=== PATIENT | male | born 1965 | race Hispanic/Latino ===

== ENCOUNTER 2024-03-10 17:38 | Inpatient (IN) | payer OTHER ==
[~2024-03-10] VITALS: Ht 175.3 cm; Wt 89.9 kg
[2024-03-10] MEDS: ACETAMINOPHEN 325 MG TAB PO ONE (18:25)
[2024-03-10 18:49] LABS: CORONAVIRUS COVID-19 AG NEGATIVE (NEGATIVE); INFLUENZA A AG NEGATIVE (NEGATIVE); INFLUENZA B AG NEGATIVE (NEGATIVE)
[2024-03-10 19:09] LABS: BASOPHILS % 0.3 % (0.0-1.0); EOSINOPHILS % 0.3 % (0.0-6.0); HEMATOCRIT 31.7 % (38.2-49.6); LYMPHOCYTES # (AUTO) 1.1 (1.0-3.2); LYMPHOCYTES % 7.5 % (18.0-39.1); MEAN CORPUSCULAR HEMOGLOBIN 31.5 pg (28-32); MEAN CORPUSCULAR HGB CONC 31.5 g/dL (31-35); MONOCYTES # (AUTO) 0.5 (0.2-0.8); MONOCYTES % 3.3 % (4.4-11.3); NEUTROPHILS # (AUTO) 12.6 (2.1-6.9); NEUTROPHILS % 87.4 % (38.7-80.0); PLATELET COUNT 639 x10e3/uL (140-360); RED BLOOD COUNT 3.17 x10e6/uL (4.3-5.7); RED CELL DISTRIBUTION WIDTH 13.2 % (11.7-14.4); WHITE BLOOD COUNT 14.45 x10e3/uL (4.8-10.8)
[2024-03-10] MEDS: SODIUM CHLORIDE 0.9% 1000ML 1,000 ML IV ONE ×2 (19:15→22:25)
[2024-03-10 19:25] VITALS: TEMP 98.7
[2024-03-10 19:31] LABS: ALBUMIN 2.2 g/dL (3.5-5.0); ALBUMIN/GLOBULIN RATIO 0.4 (0.8-2.0); ANION GAP 17.2 mmol/L (8-16); CALCIUM 9.6 mg/dL (8.4-10.2); CREATININE, SERUM 1.28 mg/dL (0.72-1.25); POTASSIUM 4.2 mmol/L (3.5-5.1)
[2024-03-10 22:30] VITALS: PULSE 91; RESP 16; O2SAT 97
[2024-03-10 23:30] VITALS: PULSE 93; RESP 20
[2024-03-10 23:51] VITALS: BP 131/68; PULSE 95; RESP 22; TEMP 97.6; O2SAT 97
[2024-03-11] VITALS (10 sets, daily range): BP systolic 119–131; BP diastolic 63–70; PULSE 62–102; RESP 16–22; TEMP 97.6–98.5; O2SAT 95–98
[2024-03-11] MEDS ORDERED: LOVASTATIN40 MG PO (01:05)
[2024-03-11] MEDS ORDERED: AMLODIPINE BESY10 MG PO (01:05)
[2024-03-11] MEDS ORDERED: ENALAPRIL MALEA20 MG PO (01:05)
[2024-03-11] MEDS ORDERED: FENOFIBRATE200 MG PO (01:05)
[2024-03-11] MEDS: BENZONATATE 100 MG CAP PO PRN (01:57)
[2024-03-11 08:53] LABS: BASOPHILS % 0.1 % (0.0-1.0); EOSINOPHILS % 0.1 % (0.0-6.0); HEMATOCRIT 30.1 % (38.2-49.6); HEMOGLOBIN 9.5 g/dL (14.0-18.0); LYMPHOCYTES # (AUTO) 1.4 (1.0-3.2); MEAN CORPUSCULAR HEMOGLOBIN 31.1 pg (28-32); MEAN CORPUSCULAR HGB CONC 31.6 g/dL (31-35); MEAN CORPUSCULAR VOLUME 98.7 fL (81-99); MONOCYTES # (AUTO) 0.6 (0.2-0.8); MONOCYTES % 3.7 % (4.4-11.3); NEUTROPHILS # (AUTO) 14.8 (2.1-6.9); NEUTROPHILS % 86.8 % (38.7-80.0); PLATELET COUNT 593 x10e3/uL (140-360); RED BLOOD COUNT 3.05 x10e6/uL (4.3-5.7); RED CELL DISTRIBUTION WIDTH 13.2 % (11.7-14.4); WHITE BLOOD COUNT 17.09 x10e3/uL (4.8-10.8)
[2024-03-11 09:08] LABS: INR 1.16; PROTHROMBIN TIME 15.5 seconds (11.9-14.5)
[2024-03-11 09:09] LABS: PARTIAL THROMBOPLASTIN TIME 34.5 seconds (23.8-35.5)
[2024-03-11 09:17] LABS: ALBUMIN 1.9 g/dL (3.5-5.0); ALBUMIN/GLOBULIN RATIO 0.4 (0.8-2.0); BILIRUBIN,TOTAL 0.5 mg/dL (0.2-1.2); CALCIUM 8.8 mg/dL (8.4-10.2); CREATININE, SERUM 0.76 mg/dL (0.72-1.25); TOTAL PROTEIN 7.2 g/dL (6.5-8.1)
[2024-03-12 04:00] VITALS: BP 128/68; PULSE 88; RESP 17; TEMP 98; O2SAT 98
[2024-03-12 08:00] VITALS: BP 115/70; PULSE 93; RESP 18; TEMP 99; O2SAT 98
[2024-03-12 11:29] VITALS: BP 121/64; PULSE 98; RESP 20; TEMP 99.3; O2SAT 97
[2024-03-12 15:25] LABS: BODY FLUID APPEARANCE SL.CLOUDY; BODY FLUID COLOR YELLOW; BODY FLUID TYPE PLEURAL
[2024-03-12 15:26] LABS: RBC,BODY FLUID 1000 cells/uL; WBC,BODY FLUID 1604 cells/uL
[2024-03-12 16:09] VITALS: BP 125/63; PULSE 97; RESP 19; TEMP 99.7; O2SAT 98
[2024-03-12 16:21] LABS: LYMPHOCYTES,BODY FLUID 5 %; MONO/MACROPHG,BODY FLUID 17 %; NEUTROPHILS,BODY FLUID 78 %; TOTAL CELLS COUNTED (DIFF) 100
[2024-03-12] MEDS: ACETAMINOPHEN 325 MG TAB PO PRN (18:34)
[2024-03-12 20:00] VITALS: BP 104/57; PULSE 87; RESP 18; TEMP 98.1; O2SAT 97
[2024-03-12 20:53] VITALS: BP 104/57; PULSE 87; RESP 18; TEMP 98.1; O2SAT 97
[2024-03-13] VITALS (7 sets, daily range): BP systolic 107–117; BP diastolic 58–62; PULSE 78–96; RESP 18–20; TEMP 97.9–98.6; O2SAT 96–100
[2024-03-13 05:29] LABS: BASOPHILS % 0.3 % (0.0-1.0); EOSINOPHILS # (AUTO) 0.2 (0.0-0.4); EOSINOPHILS % 1.9 % (0.0-6.0); HEMOGLOBIN 8.9 g/dL (14.0-18.0); LYMPHOCYTES # (AUTO) 4.1 (1.0-3.2); LYMPHOCYTES % 34.1 % (18.0-39.1); MEAN CORPUSCULAR HEMOGLOBIN 31.6 pg (28-32); MEAN CORPUSCULAR HGB CONC 31.8 g/dL (31-35); MEAN CORPUSCULAR VOLUME 99.3 fL (81-99); MONOCYTES # (AUTO) 0.6 (0.2-0.8); MONOCYTES % 4.8 % (4.4-11.3); NEUTROPHILS # (AUTO) 6.9 (2.1-6.9); NEUTROPHILS % 58.4 % (38.7-80.0); PLATELET COUNT 696 x10e3/uL (140-360); RED BLOOD COUNT 2.82 x10e6/uL (4.3-5.7); RED CELL DISTRIBUTION WIDTH 13.3 % (11.7-14.4); WHITE BLOOD COUNT 11.89 x10e3/uL (4.8-10.8)
[2024-03-13 06:04] LABS: ALBUMIN 1.8 g/dL (3.5-5.0); ALBUMIN/GLOBULIN RATIO 0.4 (0.8-2.0); ANION GAP 14.5 mmol/L (8-16); BILIRUBIN,TOTAL 0.4 mg/dL (0.2-1.2); CALCIUM 8.9 mg/dL (8.4-10.2); CREATININE, SERUM 0.73 mg/dL (0.72-1.25); POTASSIUM 3.5 mmol/L (3.5-5.1); TOTAL PROTEIN 6.6 g/dL (6.5-8.1)
[2024-03-13 09:34] LABS: EOSINOPHILS % (MANUAL) 2 % (0-7); HYPOCHROMASIA SLIGHT; LYMPHOCYTES % (MANUAL) 30 % (19-48); MONOCYTES % (MANUAL) 5 % (3.4-9.0); NEUTROPHILS % (MANUAL) 60 % (40-74); PLATELET ESTIMATE SLIGHTLY INCREASED; PLATELET MORPHOLOGY COMMENT FEW LARGE; REACTIVE LYMPHOCYTES 3
[2024-03-14] VITALS (8 sets, daily range): BP systolic 111–122; BP diastolic 59–62; PULSE 81–91; RESP 16–19; TEMP 97.8–98.6; O2SAT 97–100
[2024-03-14 05:34] LABS: BASOPHILS # (AUTO) 0.1 (0.0-0.1); BASOPHILS % 0.4 % (0.0-1.0); EOSINOPHILS # (AUTO) 0.2 (0.0-0.4); EOSINOPHILS % 1.6 % (0.0-6.0); HEMATOCRIT 28.3 % (38.2-49.6); HEMOGLOBIN 9.3 g/dL (14.0-18.0); LYMPHOCYTES # (AUTO) 3.3 (1.0-3.2); LYMPHOCYTES % 27.8 % (18.0-39.1); MEAN CORPUSCULAR HEMOGLOBIN 31.2 pg (28-32); MEAN CORPUSCULAR HGB CONC 32.9 g/dL (31-35); MONOCYTES # (AUTO) 0.8 (0.2-0.8); MONOCYTES % 6.3 % (4.4-11.3); NEUTROPHILS # (AUTO) 7.6 (2.1-6.9); NEUTROPHILS % 63.2 % (38.7-80.0); PLATELET COUNT 721 x10e3/uL (140-360); RED BLOOD COUNT 2.98 x10e6/uL (4.3-5.7); RED CELL DISTRIBUTION WIDTH 13.4 % (11.7-14.4); WHITE BLOOD COUNT 11.99 x10e3/uL (4.8-10.8)
[2024-03-14 07:54] LABS: EOSINOPHILS % (MANUAL) 1 % (0-7); LYMPHOCYTES % (MANUAL) 32 % (19-48); MONOCYTES % (MANUAL) 4 % (3.4-9.0); NEUTROPHILS % (MANUAL) 63 % (40-74); PLATELET ESTIMATE MODERATELY INCREASED; PLATELET MORPHOLOGY COMMENT NORMAL
[2024-03-14 07:55] LABS: HYPOCHROMASIA SLIGHT
[2024-03-14] MEDS: AMLODIPINE BESYLATE 10 MG TAB PO SCH (11:26)
[2024-03-15] VITALS (9 sets, daily range): BP systolic 110–131; BP diastolic 57–65; PULSE 85–94; RESP 18–19; TEMP 98–99.9; O2SAT 94–100
[2024-03-15] MEDS ORDERED: AUGMENTIN 500-1 EACH PO (09:02)
[2024-03-15] MEDS ORDERED: BENZONATATE200 MG PO (09:09)
[2024-03-15 11:06] LABS: TOTAL PROTEIN,BODY FLUID 5.1 g/dL
[2024-03-15] MEDS: Morphine 4mg INJECTION 4 MG/ML INJ IV PRN (13:05)
[2024-03-15] MEDS: ONDANSETRON HCL INJ 2MG/ML 2ML 2 MG/ML VIAL IV PRN (13:05)
[2024-03-15 14:53] LABS: BODY FLUID TYPE PLEURAL
[2024-03-15 14:54] LABS: BODY FLUID APPEARANCE SL.CLOUDY; BODY FLUID COLOR YELLOW; RBC,BODY FLUID 1000 cells/uL; WBC,BODY FLUID 711 cells/uL
[2024-03-15 16:58] LABS: LYMPHOCYTES,BODY FLUID 33 %; MONO/MACROPHG,BODY FLUID 7 %; NEUTROPHILS,BODY FLUID 60 %; TOTAL CELLS COUNTED (DIFF) 100
[2024-03-16] VITALS (7 sets, daily range): BP systolic 114–126; BP diastolic 60–73; PULSE 76–87; RESP 18–19; TEMP 98.1–99.1; O2SAT 98–100
[2024-03-16] MEDS ORDERED: MAGNESIUM/ALUMINUM/SIMETHICONE 30 ML UDC PO PRN (04:30)
[2024-03-16] MEDS ORDERED: MELATONIN 3 MG TAB PO PRN (04:30)
[2024-03-16] MEDS ORDERED: HYDRALAZINE HCL 20 MG/ML VIAL IV PRN (04:30)
[2024-03-16 05:30] LABS: BASOPHILS # (AUTO) 0.1 (0.0-0.1); BASOPHILS % 0.5 % (0.0-1.0); EOSINOPHILS # (AUTO) 0.2 (0.0-0.4); EOSINOPHILS % 1.7 % (0.0-6.0); HEMOGLOBIN 9.3 g/dL (14.0-18.0); LYMPHOCYTES % 29.5 % (18.0-39.1); MEAN CORPUSCULAR HEMOGLOBIN 31.4 pg (28-32); MEAN CORPUSCULAR HGB CONC 33.2 g/dL (31-35); MEAN CORPUSCULAR VOLUME 94.6 fL (81-99); MONOCYTES # (AUTO) 1.1 (0.2-0.8); MONOCYTES % 10.4 % (4.4-11.3); NEUTROPHILS # (AUTO) 5.9 (2.1-6.9); NEUTROPHILS % 57.3 % (38.7-80.0); PLATELET COUNT 695 x10e3/uL (140-360); RED BLOOD COUNT 2.96 x10e6/uL (4.3-5.7); RED CELL DISTRIBUTION WIDTH 13.7 % (11.7-14.4); WHITE BLOOD COUNT 10.27 x10e3/uL (4.8-10.8)
[2024-03-16 06:06] LABS: ALBUMIN 2.2 g/dL (3.5-5.0); ALBUMIN/GLOBULIN RATIO 0.5 (0.8-2.0); ANION GAP 14.8 mmol/L (8-16); BILIRUBIN,TOTAL 0.3 mg/dL (0.2-1.2); CALCIUM 9.1 mg/dL (8.4-10.2); CREATININE, SERUM 0.9 mg/dL (0.72-1.25); POTASSIUM 3.8 mmol/L (3.5-5.1)
[2024-03-16] MEDS: MULTIVITAMINS/MINERALS TAB PO SCH (09:08)
[2024-03-16] MEDS: ENOXAPARIN SOD INJ 40 MG/0.4 ML SYR SC SCH (17:28)
[2024-03-17] VITALS (7 sets, daily range): BP systolic 117–133; BP diastolic 55–74; PULSE 79–91; RESP 17–20; TEMP 97.4–99.1; O2SAT 97–100
[2024-03-17] MEDS: SENNOSIDES 8.6 MG TAB PO PRN (12:23)
[2024-03-18] VITALS (8 sets, daily range): BP systolic 122–133; BP diastolic 61–68; PULSE 78–96; RESP 17–20; TEMP 98.1–100.8; O2SAT 95–100
[2024-03-19] VITALS (8 sets, daily range): BP systolic 118–129; BP diastolic 57–70; PULSE 85–99; RESP 17–20; TEMP 97.3–101.2; O2SAT 97–100
[2024-03-19 08:51] LABS: BASOPHILS # (AUTO) 0.1 (0.0-0.1); BASOPHILS % 0.6 % (0.0-1.0); EOSINOPHILS # (AUTO) 0.1 (0.0-0.4); EOSINOPHILS % 0.6 % (0.0-6.0); HEMATOCRIT 28.4 % (38.2-49.6); HEMOGLOBIN 8.9 g/dL (14.0-18.0); LYMPHOCYTES % 20.4 % (18.0-39.1); MEAN CORPUSCULAR HEMOGLOBIN 30.6 pg (28-32); MEAN CORPUSCULAR HGB CONC 31.3 g/dL (31-35); MEAN CORPUSCULAR VOLUME 97.6 fL (81-99); MONOCYTES % 7.1 % (4.4-11.3); NEUTROPHILS # (AUTO) 10.2 (2.1-6.9); PLATELET COUNT 570 x10e3/uL (140-360); RED BLOOD COUNT 2.91 x10e6/uL (4.3-5.7); RED CELL DISTRIBUTION WIDTH 13.9 % (11.7-14.4); WHITE BLOOD COUNT 14.43 x10e3/uL (4.8-10.8)
[2024-03-19 09:48] LABS: INR 1.12; PROTHROMBIN TIME 15.1 seconds (11.9-14.5)
[2024-03-19 09:53] LABS: ALBUMIN 2.3 g/dL (3.5-5.0); ALBUMIN/GLOBULIN RATIO 0.5 (0.8-2.0); ANION GAP 16.5 mmol/L (8-16); BILIRUBIN,TOTAL 0.3 mg/dL (0.2-1.2); CALCIUM 9.5 mg/dL (8.4-10.2); CREATININE, SERUM 0.82 mg/dL (0.72-1.25); POTASSIUM 3.5 mmol/L (3.5-5.1); TOTAL PROTEIN 7.3 g/dL (6.5-8.1)
[2024-03-20] VITALS: BP 133/62; PULSE 85; RESP 19; TEMP 98.4; O2SAT 98
[2024-03-20 05:43] LABS: BASOPHILS # (AUTO) 0.1 (0.0-0.1); BASOPHILS % 0.4 % (0.0-1.0); EOSINOPHILS # (AUTO) 0.2 (0.0-0.4); EOSINOPHILS % 0.9 % (0.0-6.0); HEMATOCRIT 25.8 % (38.2-49.6); HEMOGLOBIN 8.5 g/dL (14.0-18.0); LYMPHOCYTES # (AUTO) 3.4 (1.0-3.2); LYMPHOCYTES % 20.5 % (18.0-39.1); MEAN CORPUSCULAR HEMOGLOBIN 30.6 pg (28-32); MEAN CORPUSCULAR HGB CONC 32.9 g/dL (31-35); MEAN CORPUSCULAR VOLUME 92.8 fL (81-99); MONOCYTES # (AUTO) 1.2 (0.2-0.8); MONOCYTES % 6.9 % (4.4-11.3); NEUTROPHILS # (AUTO) 11.8 (2.1-6.9); NEUTROPHILS % 70.7 % (38.7-80.0); PLATELET COUNT 617 x10e3/uL (140-360); RED BLOOD COUNT 2.78 x10e6/uL (4.3-5.7); RED CELL DISTRIBUTION WIDTH 14.1 % (11.7-14.4); WHITE BLOOD COUNT 16.66 x10e3/uL (4.8-10.8)
[2024-03-20 06:09] LABS: ANION GAP 15.7 mmol/L (8-16); CALCIUM 9.1 mg/dL (8.4-10.2); CREATININE, SERUM 0.8 mg/dL (0.72-1.25); POTASSIUM 3.7 mmol/L (3.5-5.1)
[2024-03-20 07:53] VITALS: BP 116/57; PULSE 87; RESP 18; TEMP 98.7; O2SAT 94
[2024-03-20 11:26] VITALS: BP 124/59; PULSE 94; RESP 18; TEMP 99.1; O2SAT 94
[2024-03-20] MEDS ORDERED: IOPAMIDOL 370 MG/ML 100 ML INFUS..BTL INJ ONE (12:43)
[2024-03-20 16:33] VITALS: BP 122/106; PULSE 87; RESP 20; TEMP 98; O2SAT 98
[2024-03-20] MEDS: Vancomycin IV 1 GM in SODIUM CHLORIDE 0.9% 250ML 250 ML IV SCH (17:56)
[2024-03-20 20:00] VITALS: BP 132/61; PULSE 95; RESP 16; TEMP 98.8; O2SAT 97
[2024-03-20 21:00] VITALS: BP 132/61; PULSE 95; RESP 16; TEMP 98.8; O2SAT 97
[2024-03-21] VITALS (9 sets, daily range): BP systolic 111–139; BP diastolic 51–70; PULSE 88–98; RESP 16–20; TEMP 98.3–99.8; O2SAT 92–98
[2024-03-21 05:54] LABS: BASOPHILS # (AUTO) 0.1 (0.0-0.1); BASOPHILS % 0.6 % (0.0-1.0); EOSINOPHILS # (AUTO) 0.1 (0.0-0.4); EOSINOPHILS % 0.7 % (0.0-6.0); HEMATOCRIT 26.4 % (38.2-49.6); HEMOGLOBIN 8.6 g/dL (14.0-18.0); LYMPHOCYTES # (AUTO) 2.8 (1.0-3.2); LYMPHOCYTES % 17.1 % (18.0-39.1); MEAN CORPUSCULAR HEMOGLOBIN 30.2 pg (28-32); MEAN CORPUSCULAR HGB CONC 32.6 g/dL (31-35); MEAN CORPUSCULAR VOLUME 92.6 fL (81-99); MONOCYTES # (AUTO) 0.9 (0.2-0.8); MONOCYTES % 5.8 % (4.4-11.3); NEUTROPHILS # (AUTO) 12.2 (2.1-6.9); NEUTROPHILS % 75.2 % (38.7-80.0); PLATELET COUNT 607 x10e3/uL (140-360); RED BLOOD COUNT 2.85 x10e6/uL (4.3-5.7); RED CELL DISTRIBUTION WIDTH 14.3 % (11.7-14.4); WHITE BLOOD COUNT 16.18 x10e3/uL (4.8-10.8)
[2024-03-21 06:35] LABS: ALBUMIN/GLOBULIN RATIO 0.4 (0.8-2.0); ANION GAP 17.6 mmol/L (8-16); BILIRUBIN,TOTAL 0.4 mg/dL (0.2-1.2); CALCIUM 9.4 mg/dL (8.4-10.2); CREATININE, SERUM 0.81 mg/dL (0.72-1.25); POTASSIUM 3.6 mmol/L (3.5-5.1); TOTAL PROTEIN 7.3 g/dL (6.5-8.1)
[2024-03-21] MEDS: Vancomycin IV 1 GM in SODIUM CHLORIDE 0.9% 250ML 250 ML IV SCH (08:16)
[2024-03-21 08:42] LABS: HIV 1&2 AB SCREEN NON-REACTIVE (NONREACTIVE); HIV- 1 P24 AG SCREEN NON-REACTIVE (NONREACTIVE)
[2024-03-22] VITALS (7 sets, daily range): BP systolic 119–143; BP diastolic 54–68; PULSE 85–98; RESP 18–21; TEMP 98.2–99.5; O2SAT 94–98
[2024-03-22] MEDS: Vancomycin IV 1 GM in SODIUM CHLORIDE 0.9% 250ML 250 ML IV SCH (10:48)
[2024-03-22] MEDS: Morphine 4mg INJECTION 4 MG/ML INJ IV PRN (20:11)
[2024-03-23] VITALS (17 sets, daily range): BP systolic 99–139; BP diastolic 50–79; PULSE 81–109; RESP 12–19; TEMP 98.1–98.6; O2SAT 95–100
[2024-03-23 09:42] LABS: BASOPHILS # (AUTO) 0.1 (0.0-0.1); BASOPHILS % 0.7 % (0.0-1.0); EOSINOPHILS # (AUTO) 0.2 (0.0-0.4); EOSINOPHILS % 1.5 % (0.0-6.0); HEMATOCRIT 27.2 % (38.2-49.6); HEMOGLOBIN 8.4 g/dL (14.0-18.0); LYMPHOCYTES # (AUTO) 2.2 (1.0-3.2); LYMPHOCYTES % 18.2 % (18.0-39.1); MEAN CORPUSCULAR HEMOGLOBIN 30.1 pg (28-32); MEAN CORPUSCULAR HGB CONC 30.9 g/dL (31-35); MEAN CORPUSCULAR VOLUME 97.5 fL (81-99); MONOCYTES # (AUTO) 0.7 (0.2-0.8); MONOCYTES % 6.2 % (4.4-11.3); NEUTROPHILS # (AUTO) 8.8 (2.1-6.9); NEUTROPHILS % 73.1 % (38.7-80.0); PLATELET COUNT 529 x10e3/uL (140-360); RED BLOOD COUNT 2.79 x10e6/uL (4.3-5.7); RED CELL DISTRIBUTION WIDTH 14.6 % (11.7-14.4); WHITE BLOOD COUNT 12.01 x10e3/uL (4.8-10.8)
[2024-03-23 10:02] LABS: ANION GAP 15.7 mmol/L (8-16); CALCIUM 9.4 mg/dL (8.4-10.2); CREATININE, SERUM 0.71 mg/dL (0.72-1.25); POTASSIUM 3.7 mmol/L (3.5-5.1)
[2024-03-23 10:10] LABS: INR 1.03; PROTHROMBIN TIME 14.1 seconds (11.9-14.5)
[2024-03-23 10:11] LABS: PARTIAL THROMBOPLASTIN TIME 37.6 seconds (23.8-35.5)
[2024-03-23] MEDS ORDERED: PROPOFOL IV EMULSION 10 MG/ML 20 ML VIAL ONE (11:19)
[2024-03-23] MEDS ORDERED: SUCCINYLCHOLINE CHLORIDE 20 MG/ML 10ML VIAL ONE (11:20)
[2024-03-23] MEDS ORDERED: ROCURONIUM BROMIDE 1 ML IV ONE ×2 (11:20→13:30)
[2024-03-23] MEDS ORDERED: SEVOFLURANE INHAL SOLN 250 ML PEN BTL ONE (11:20)
[2024-03-23] MEDS ORDERED: FENTANYL CITRATE/PF 100MCG/2 ML INJ ONE (11:20)
[2024-03-23] MEDS ORDERED: PHENYLEPHRINE HCL 1% 10 MG/ML VIAL ONE (11:39)
[2024-03-23] MEDS ORDERED: ACETAMINOPHEN 1000 MG/100 ML 100 ML IV ONE (15:45)
[2024-03-23] MEDS ORDERED: ONDANSETRON HCL INJ 2MG/ML 2ML 2 MG/ML VIAL ONE (16:57)
[2024-03-23] MEDS ORDERED: HYDROMORPHONE 2MG/ML ONE (16:57)
[2024-03-23] MEDS ORDERED: DEXAMETHASONE SOD PHOS INJ 4 MG/ML SDV ONE (16:57)
[2024-03-23] MEDS: SODIUM CHLORIDE 0.9% 1000ML 1,000 ML IV SCH (16:57)
[2024-03-23] MEDS: HYDROMORPHONE 1MG/1ML INJ IV PRN (17:11)
[2024-03-23 18:19] LABS: ANION GAP 17.1 mmol/L (8-16); CALCIUM 8.6 mg/dL (8.4-10.2); CREATININE, SERUM 0.75 mg/dL (0.72-1.25); POTASSIUM 4.1 mmol/L (3.5-5.1)
[2024-03-23 19:05] LABS: BASOPHILS # (AUTO) 0.1 (0.0-0.1); BASOPHILS % 0.3 % (0.0-1.0); HEMATOCRIT 24.3 % (38.2-49.6); HEMOGLOBIN 7.7 g/dL (14.0-18.0); LYMPHOCYTES # (AUTO) 1.1 (1.0-3.2); LYMPHOCYTES % 5.8 % (18.0-39.1); MEAN CORPUSCULAR HEMOGLOBIN 30.2 pg (28-32); MEAN CORPUSCULAR HGB CONC 31.7 g/dL (31-35); MEAN CORPUSCULAR VOLUME 95.3 fL (81-99); MONOCYTES # (AUTO) 0.7 (0.2-0.8); MONOCYTES % 3.4 % (4.4-11.3); NEUTROPHILS # (AUTO) 17.1 (2.1-6.9); NEUTROPHILS % 90.1 % (38.7-80.0); PLATELET COUNT 590 x10e3/uL (140-360); RED BLOOD COUNT 2.55 x10e6/uL (4.3-5.7); RED CELL DISTRIBUTION WIDTH 14.7 % (11.7-14.4)
[2024-03-23 19:08] LABS: WHITE BLOOD COUNT 18.94 x10e3/uL (4.8-10.8)
[2024-03-23] MEDS: KETOROLAC TROMETHAMINE 30 MG/ML VIAL IV PRN (19:32)
[2024-03-23] MEDS: SODIUM CHLORIDE 0.9% 100 ML ONE (20:31)
[2024-03-23] MEDS: SODIUM CHLORIDE 0.9% 250ML 250 ML ONE ×2 (20:31→20:32)
[2024-03-23] MEDS: PIPERACILLIN/TAZOBACTAM 3.375 GM VIAL ONE (20:32)
[2024-03-24] VITALS (47 sets, daily range): BP systolic 103–153; BP diastolic 39–78; PULSE 81–106; RESP 11–26; TEMP 98.2–98.8; O2SAT 95–100
[2024-03-24 07:15] LABS: ALBUMIN 1.7 g/dL (3.5-5.0); ALBUMIN/GLOBULIN RATIO 0.4 (0.8-2.0); BILIRUBIN,TOTAL 0.3 mg/dL (0.2-1.2); CALCIUM 7.9 mg/dL (8.4-10.2); CREATININE, SERUM 0.78 mg/dL (0.72-1.25); TOTAL PROTEIN 5.7 g/dL (6.5-8.1)
[2024-03-24 09:35] LABS: BASOPHILS % 0.3 % (0.0-1.0); EOSINOPHILS # (AUTO) 0.1 (0.0-0.4); EOSINOPHILS % 0.5 % (0.0-6.0); LYMPHOCYTES # (AUTO) 2.8 (1.0-3.2); LYMPHOCYTES % 26.5 % (18.0-39.1); MEAN CORPUSCULAR HEMOGLOBIN 29.5 pg (28-32); MEAN CORPUSCULAR HGB CONC 30.9 g/dL (31-35); MEAN CORPUSCULAR VOLUME 95.5 fL (81-99); MONOCYTES # (AUTO) 0.7 (0.2-0.8); MONOCYTES % 6.3 % (4.4-11.3); NEUTROPHILS # (AUTO) 6.9 (2.1-6.9); PLATELET COUNT 559 x10e3/uL (140-360); RED CELL DISTRIBUTION WIDTH 14.7 % (11.7-14.4); WHITE BLOOD COUNT 10.49 x10e3/uL (4.8-10.8)
[2024-03-24 09:41] LABS: HEMATOCRIT 19.1 % (38.2-49.6)
[2024-03-24 09:44] LABS: HEMOGLOBIN 5.9 g/dL (14.0-18.0)
[2024-03-24 14:56] LABS: MYCOPLASMA PNEUMO IGG 302 U/mL (0-99); MYCOPLASMA PNEUMO IGM <770 U/mL (0-769)
[2024-03-24 18:24] LABS: BASOPHILS # (AUTO) 0.1 (0.0-0.1); BASOPHILS % 0.6 % (0.0-1.0); EOSINOPHILS # (AUTO) 0.2 (0.0-0.4); EOSINOPHILS % 1.7 % (0.0-6.0); HEMATOCRIT 24.2 % (38.2-49.6); HEMOGLOBIN 7.7 g/dL (14.0-18.0); LYMPHOCYTES # (AUTO) 3.4 (1.0-3.2); LYMPHOCYTES % 26.6 % (18.0-39.1); MEAN CORPUSCULAR HEMOGLOBIN 30.6 pg (28-32); MEAN CORPUSCULAR HGB CONC 31.8 g/dL (31-35); MONOCYTES # (AUTO) 0.7 (0.2-0.8); MONOCYTES % 5.4 % (4.4-11.3); NEUTROPHILS # (AUTO) 8.3 (2.1-6.9); NEUTROPHILS % 65.4 % (38.7-80.0); PLATELET COUNT 518 x10e3/uL (140-360); RED BLOOD COUNT 2.52 x10e6/uL (4.3-5.7); RED CELL DISTRIBUTION WIDTH 15.3 % (11.7-14.4); WHITE BLOOD COUNT 12.62 x10e3/uL (4.8-10.8)
[2024-03-24] MEDS: HYDROCODONE/APAP 7.5MG-325MG 1 EA TAB PO PRN (19:44)
[2024-03-24] MEDS: SODIUM CHLORIDE 0.9% 250ML 250 ML IV ONE (20:34)
[2024-03-25] VITALS (36 sets, daily range): BP systolic 109–167; BP diastolic 41–66; PULSE 84–101; RESP 14–21; TEMP 98.4–98.8; O2SAT 95–100
[2024-03-25 06:44] LABS: BASOPHILS # (AUTO) 0.1 (0.0-0.1); BASOPHILS % 0.4 % (0.0-1.0); EOSINOPHILS # (AUTO) 0.3 (0.0-0.4); EOSINOPHILS % 2.7 % (0.0-6.0); HEMATOCRIT 22.9 % (38.2-49.6); LYMPHOCYTES # (AUTO) 3.7 (1.0-3.2); LYMPHOCYTES % 31.7 % (18.0-39.1); MEAN CORPUSCULAR HEMOGLOBIN 30.1 pg (28-32); MONOCYTES # (AUTO) 0.9 (0.2-0.8); MONOCYTES % 7.8 % (4.4-11.3); NEUTROPHILS # (AUTO) 6.7 (2.1-6.9); NEUTROPHILS % 57.1 % (38.7-80.0); PLATELET COUNT 531 x10e3/uL (140-360); RED BLOOD COUNT 2.36 x10e6/uL (4.3-5.7); RED CELL DISTRIBUTION WIDTH 15.2 % (11.7-14.4)
[2024-03-25 06:48] LABS: HEMOGLOBIN 7.1 g/dL (14.0-18.0)
[2024-03-25 06:58] LABS: ALBUMIN 1.7 g/dL (3.5-5.0); ALBUMIN/GLOBULIN RATIO 0.4 (0.8-2.0); ANION GAP 13.6 mmol/L (8-16); BILIRUBIN,TOTAL 0.3 mg/dL (0.2-1.2); CALCIUM 8.2 mg/dL (8.4-10.2); CREATININE, SERUM 0.68 mg/dL (0.72-1.25); POTASSIUM 3.6 mmol/L (3.5-5.1); TOTAL PROTEIN 5.5 g/dL (6.5-8.1)
[2024-03-25] MEDS: SODIUM CHLORIDE 0.9% 250ML 250 ML IV ONE (20:36)
[2024-03-26] VITALS (18 sets, daily range): BP systolic 122–156; BP diastolic 39–69; PULSE 70–90; RESP 10–22; TEMP 98.3–98.9; O2SAT 94–99
[2024-03-26 06:55] LABS: BASOPHILS # (AUTO) 0.1 (0.0-0.1); BASOPHILS % 0.5 % (0.0-1.0); EOSINOPHILS # (AUTO) 0.3 (0.0-0.4); EOSINOPHILS % 3.3 % (0.0-6.0); HEMATOCRIT 26.3 % (38.2-49.6); HEMOGLOBIN 8.7 g/dL (14.0-18.0); LYMPHOCYTES # (AUTO) 2.8 (1.0-3.2); LYMPHOCYTES % 29.6 % (18.0-39.1); MEAN CORPUSCULAR HEMOGLOBIN 30.7 pg (28-32); MEAN CORPUSCULAR HGB CONC 33.1 g/dL (31-35); MEAN CORPUSCULAR VOLUME 92.9 fL (81-99); MONOCYTES # (AUTO) 0.8 (0.2-0.8); MONOCYTES % 8.8 % (4.4-11.3); NEUTROPHILS # (AUTO) 5.4 (2.1-6.9); NEUTROPHILS % 57.3 % (38.7-80.0); PLATELET COUNT 427 x10e3/uL (140-360); RED BLOOD COUNT 2.83 x10e6/uL (4.3-5.7); RED CELL DISTRIBUTION WIDTH 15.4 % (11.7-14.4); WHITE BLOOD COUNT 9.39 x10e3/uL (4.8-10.8)
[2024-03-26 07:33] LABS: ALBUMIN 1.7 g/dL (3.5-5.0); ALBUMIN/GLOBULIN RATIO 0.4 (0.8-2.0); ANION GAP 13.3 mmol/L (8-16); BILIRUBIN,TOTAL 0.4 mg/dL (0.2-1.2); CALCIUM 8.4 mg/dL (8.4-10.2); CREATININE, SERUM 0.63 mg/dL (0.72-1.25); TOTAL PROTEIN 5.7 g/dL (6.5-8.1)
[2024-03-26 08:05] LABS: POTASSIUM 3.3 mmol/L (3.5-5.1)
[2024-03-26] MEDS: POTASSIUM CHLORIDE 20 MEQ TAB CR PO STA (11:36)
[2024-03-26 12:06] LABS: CHLAMYDIA TRACHOMATIS IGM <0.8
[2024-03-26 17:24] LABS: CHLAMYDOPHILA PSITTACI IGM <1:10 (Neg:<1:10)
[2024-03-27] VITALS (10 sets, daily range): BP systolic 132–152; BP diastolic 64–80; PULSE 63–92; RESP 18; TEMP 98–99.8; O2SAT 97–100
[2024-03-27 17:10] LABS: TOTAL PROTEIN,BODY FLUID 5.1 g/dL
[2024-03-28] VITALS (10 sets, daily range): BP systolic 125–147; BP diastolic 63–74; PULSE 74–98; RESP 18–22; TEMP 97.9–99.2; O2SAT 97–100
[2024-03-29] VITALS (10 sets, daily range): BP systolic 130–156; BP diastolic 59–78; PULSE 72–89; RESP 17–20; TEMP 98.2–98.6; O2SAT 95–98
[2024-03-29 07:28] LABS: BASOPHILS % 0.5 % (0.0-1.0); EOSINOPHILS # (AUTO) 0.5 (0.0-0.4); EOSINOPHILS % 5.7 % (0.0-6.0); HEMATOCRIT 28.7 % (38.2-49.6); HEMOGLOBIN 8.9 g/dL (14.0-18.0); LYMPHOCYTES # (AUTO) 2.7 (1.0-3.2); LYMPHOCYTES % 31.2 % (18.0-39.1); MEAN CORPUSCULAR HEMOGLOBIN 30.3 pg (28-32); MEAN CORPUSCULAR VOLUME 97.6 fL (81-99); MONOCYTES # (AUTO) 0.9 (0.2-0.8); MONOCYTES % 9.9 % (4.4-11.3); NEUTROPHILS # (AUTO) 4.5 (2.1-6.9); NEUTROPHILS % 52.4 % (38.7-80.0); PLATELET COUNT 420 x10e3/uL (140-360); RED BLOOD COUNT 2.94 x10e6/uL (4.3-5.7); WHITE BLOOD COUNT 8.65 x10e3/uL (4.8-10.8)
[2024-03-29] MEDS: SODIUM CHLORIDE 0.9% 1000ML 1,000 ML IV SCH (09:38)
[2024-03-30] VITALS: BP 154/65; PULSE 84; RESP 18; TEMP 98.6; O2SAT 97
[2024-03-30 04:00] VITALS: BP 150/53; PULSE 71; RESP 18; TEMP 98.1; O2SAT 99
[2024-03-30 07:46] VITALS: PULSE 84; RESP 18; O2SAT 96
[2024-03-30 08:00] VITALS: BP 138/75; PULSE 78; RESP 18; TEMP 98; O2SAT 96
[2024-03-30 10:47] VITALS: BP 138/75; PULSE 78; RESP 18; TEMP 98; O2SAT 96
== END 2024-03-30 13:50 | disposition home or self-care (01) | DRG 853 ==
LOC: ER 17:43 → ERHOLD 21:29 → MED/SURG2 03-11 00:43 → ICU 03-23 16:32 → MED/SURG 03-26 22:40
PROVIDERS: ADMIT Internal Medicine; ATTEND Internal Medicine
PROC: 0W993ZZ Drainage of Right Pleural Cavity, Percutaneous Approach (ICD-10-PCS; 2024-03-12)
PROC: 0W993ZZ Drainage of Right Pleural Cavity, Percutaneous Approach (ICD-10-PCS; 2024-03-15)
PROC: 0W9930Z Drainage of Right Pleural Cavity with Drainage Device, Percutaneous Approach (ICD-10-PCS; principal; 2024-03-20)
PROC: 0BNK4ZZ Release Right Lung, Percutaneous Endoscopic Approach (ICD-10-PCS; 2024-03-23)
PROC: 0W990ZZ Drainage of Right Pleural Cavity, Open Approach (ICD-10-PCS; 2024-03-23)
PROC: 30233N1 Transfusion of Nonautologous Red Blood Cells into Peripheral Vein, Percutaneous Approach (ICD-10-PCS; 2024-03-24)
DX: A41.9 Sepsis, unspecified organism (principal); J18.9 Pneumonia, unspecified organism; J86.9 Pyothorax without fistula; J90 Pleural effusion, not elsewhere classified; N17.9 Acute kidney failure, unspecified; R91.1 Solitary pulmonary nodule; D64.9 Anemia, unspecified; F17.210 Nicotine dependence, cigarettes, uncomplicated; D75.839 Thrombocytosis, unspecified; R73.9 Hyperglycemia, unspecified; E88.09 Other disorders of plasma-protein metabolism, not elsewhere classified; I10 Essential (primary) hypertension; Z11.52 Encounter for screening for COVID-19; F10.10 Alcohol abuse, uncomplicated
CPT/HCPCS: 32555; 32557; 36415; 71045; 71046; 71250; 71260; 74470; 76942; 80048; 80053; 80202; 82040; 82945; 83605; 83615; 84157; 84478; 85025; 85610; 85730; 86631; 86738; 86850; 86900; 86920; 87040; 87070; 87116; 87205; 87206; 87390; 87449; 88112; 88305; 88307; 88309; 88342; 89051; 93306; 94760; 94799; 99284; C1729; C1769; G0433; G0435; J0330; J0696; J1100; J1171; J1650; J1885; J2270; J2371; J2405; J2470; J2543; J7030; J7050; P9016; Q9967